=== PATIENT | female | born 1985 | race African-American/Black ===

== ENCOUNTER 2022-07-20 18:16 | Emergency (ER) | payer MEDICAID, OTHER ==
[~2022-07-20] VITALS: Ht 160 cm; Wt 68.0 kg
[2022-07-20 18:19] VITALS: BP 138/78
[2022-07-20] MEDS ORDERED: ACETAMINOPHEN 325MG TABLET PO ONE (18:45)
[2022-07-20] MEDS ORDERED: LIDOCAINE HCL 1% 20ML VIAL (Pyxis) INJ INFIL ONE (19:30)
== END 2022-07-20 20:38 | disposition home or self-care (01) ==
LOC: ER 18:16
DX: R51.9 Headache, unspecified (principal); E78.00 Pure hypercholesterolemia, unspecified
CPT/HCPCS: 12011; 70450; 70486; 81025; 99284; J3490

== ENCOUNTER 2022-08-08 11:17 | Emergency (ER) | payer MEDICAID | END 2022-08-08 12:03 | disposition home or self-care (01) | LOC: ER 12:02 | DX: Z48.02 Encounter for removal of sutures (principal); E78.00 Pure hypercholesterolemia, unspecified | CPT/HCPCS: 99281 ==